=== PATIENT | male | born 1985 | race Caucasian/White ===

== ENCOUNTER 2018-06-19 19:08 | Inpatient (IN) ==
--- NOTE | 2018-06-19 19:26 | Emergency Department Note ---
Disposition Clinical Impression: Suicidal behavior Qualifiers: Attempted self-injury: with attempted self-injury Qualified Code(s): T14.91XA - Suicide attempt, initial encounter Abrasion of face Qualifiers: Encounter type: initial encounter Qualified Code(s): S00.81XA - Abrasion of other part of head, initial encounter Disposition: Admitted As Inpatient Condition: Good Psych HPI - General Chief Complaint: ED Psychiatric Symptoms Stated Complaint: SI Time Seen by Provider: 06/19/18 19:12 Source: patient Mode of arrival: private vehicle Limitations: no limitations Nursing Notes Reviewed: Yes Vital Signs Reviewed: Yes - History of Present Illness HPI Narrative: 32-year-old male history of schizoaffective and bipolar disorder currently on zyprexa who presents with a complaint of suicidal ideation. Reports yesterday he tried to scratch his face off. He told his significant other that he needed to come to the hospital because he was afraid he was going to harm himself. Reports a past history of cutting in the past. He reports compliance with his medications. Denies any alcohol use with the exception of occasional intake. Also reports using marijuana. He is also seeing things as well as hearing voices which has happened to him before. No other complaints. Pt complaint: suicidal ideation Onset (ago): day(s) History of similar episodes: Yes Improves with: none Worsens with: none Alleged intoxication: No Associated Psychiatric Symptoms: depression, suicidal ideation, auditory hallucinations, visual hallucinations Associated symptoms: Reports: denies other symptoms Traumatic symptoms: denies traumatic injury Treatments prior to arrival: none Self harm or harm to others: admits thoughts of self harm, has plan - Related Data Home Medications Medication Instructions Recorded Confirmed Cough Drops 03/18/16 03/18/16 Previous Rx's Medication Instructions Recorded Magic Mouthwash [Magic Mouthwash 10 ml PO QID PRN #240 ml 03/18/16 BLM] cephALEXin [Keflex] 500 mg PO QID #40 capsule 03/18/16 predniSONE [PredniSONE] 20 mg PO BID #10 tablet 03/18/16 Ondansetron HCl [Zofran] 4 mg PO TID PRN #21 tablet 04/18/17 Cephalexin [Keflex] 500 mg PO BID #14 capsule 04/27/17 Allergies Allergy/AdvReac Type Severity Reaction Status Date / Time No Known Allergies Allergy Verified 04/27/17 13:16 All systems ED: reviewed and negative except as stated. Psychiatric: Reports: anxiety, depression, suicidal thoughts, auditory reece ucinations, visual hallucinations Past Medical History - Past Medical History Attestation: Yes The following information was validated with the patient. Source: patient Medical history: Reports: no medical history Surgical history: Reports: no surgical history, vasectomy Psychiatric history: Reports: anxiety, bipolar, depression - Social History Smoking Status: Current every day smoker Smokeless Tobacco Status: No Alcohol use: Reports: occasionally Drug use: Reports: marijuana Physical Exam - General Limitations: no limitations General appearance: alert, in no apparent distress - Head Head exam: atraumatic, normocephalic, other (There are numerous superficial abrasions over the face as well as a few ecchymotic areas over the right forehead and christian.) - Eye Eye exam: Present: normal appearance - ENT ENT exam: normal exam - Neck Neck exam: Present: normal inspection - Chest Chest inspection: Present: normal inspection, symmetric chest wall rise - Respiratory Respiratory exam: Present: normal lung sounds bilaterally - Cardiovascular Cardiovascular exam: Present: normal rhythm, tachycardia, normal heart sounds - Abdominal Exam Abdominal exam: Present: soft, Non-Tender. Absent: tenderness, distention, rigidity - Extremities Exam Extremities exam: Present: normal inspection, full ROM - Expanded Upper Extremity Exam Shoulder exam: Present: normal inspection, full ROM Arm exam: Present: normal inspection, full ROM Elbow exam: Present: normal inspection, full ROM Forearm/Wrist exam: Present: normal inspection, full ROM Hand exam: Present: normal inspection, full ROM - Expanded Lower Extremity Exam Hip/Pelvis exam: Present: normal inspection, full ROM Upper leg exam: Present: normal inspection, full ROM Knee exam: Present: normal inspection, full ROM Lower leg exam: Present: normal inspection, full ROM Ankle exam: Present: normal inspection, full ROM Foot/toe exam: Present: normal inspection, full ROM - Neurological Exam Neurological exam: Present: alert, other (GCS 15. Answers questions appropriately. Moves all extremities) - Psychiatric Psychiatric exam: Present: anxious, suicidal ideation - Skin Skin exam: Present: warm, dry Course Course Narrative: Patient seen and examined. Vital signs reviewed. He is pink slipped for suicidal ideation. Plan for labs for medical clearance and psychiatric evaluation. - Reevaluation(s) Reevaluation #1: Patient is medically cleared awaiting psychiatric evaluation. Time: 20:53 Vital Signs Temperature 98.3 F 06/19/18 19:18 Pulse Rate 110 06/19/18 19:18 Respiratory Rate 18 06/19/18 19:18 Blood Pressure 143/92 06/19/18 19:18 O2 Sat by Pulse Oximetry 97 06/19/18 19:18 Temperature 98.3 F 06/19/18 19:18 Pulse Rate 110 06/19/18 19:18 Respiratory Rate 18 06/19/18 19:18 Blood Pressure 143/92 06/19/18 19:18 O2 Sat by Pulse Oximetry 97 06/19/18 19:18 Psych - MDM Narrative Medical decision making narrative: 32-year-old male presenting with suicidal ideation and self injurious behavior. He was medically cleared and evaluated by psychiatry. The patient was deemed appropriate for inpatient admission. - Lab Data Lab results reviewed: Yes I reviewed the patient's lab results. Result diagrams: 06/19/18 19:40 06/19/18 19:40 Lab Results 06/19/18 06/19/18 06/19/18 Range/Units 19:40 19:40 19:52 WBC 11.6 H (4.3-11.1) K/mcL RBC 5.54 H (4.19-5.50) M/mcL Hgb 17.2 H (12.9-16.9) g/dL Hct 47.7 (37.5-50.1) % MCV 86.1 (83.0-100.0) fL MCH 31.0 (28.0-33.3) pg MCHC 36.1 H (31.6-35.5) g/dL RDW 11.9 (11.5-14.5) % Plt Count 308 (140-400) K/mcL MPV 9.5 (9.4-12.4) fL Immature Gran % 0.2 (0-4) % Seg Neutrophils % 52.6 % Lymphocytes % 36.6 % Monocytes % 6.7 % Eosinophils % 3.1 % Basophils % 0.8 % Neutrophils # 6.1 (1.6-8.9) K/mcL Lymphocytes # 4.2 (0.6-4.6) K/mcL Monocytes # 0.8 (0.0-1.3) K/mcL Eosinophils # 0.4 (0.0-0.6) K/mcL Basophils # 0.1 (0.0-0.2) K/mcL Sodium 140 (136-145) mEq/L Potassium 4.3 (3.5-5.1) mEq/L Chloride 103 (98-107) mEq/L Carbon Dioxide 26 (23-29) mEq/L BUN 7 (6-20) mg/dL Creatinine 0.88 (0.70-1.30) mg/dL Est GFR ( Amer) > 60 (> 60) Est GFR (Non-Af Amer) > 60 (> 60) BUN/Creatinine Ratio 8 (6-26) Glucose 90 (70-105) mg/dL Calculated Osmolality 288 (280-300) Calcium 9.9 (8.6-10.3) mg/dL Urine Color Yellow (Yellow) Urine Clarity Clear (Clear) Urine pH 6.0 (5.0-8.0) pH Units Ur Specific [place] 1.008 L (1.010-1.025) Urine Protein Negative (Neg-Trace) mg/dL Urine Glucose (UA) Normal (Normal) mg/dL Urine Ketones Negative (Negative) mg/dL Urine Blood Negative (Negative) Urine Nitrite Negative (Negative) Urine Bilirubin Negative (Negative) Urine Urobilinogen Normal (Normal) mg/dL Ur Leukocyte Esterase Negative (Negative) Salicylates < 2.5 L (15.0-30.0) mg/dL Urine Opiates Screen (Yzrhpp=288) ng/mL Acetaminophen < 10 L (10-20) mcg/mL Ur Barbiturates Screen (Eqegls=236) ng/mL Ur Phencyclidine Scrn (Cutoff=25) ng/mL Ur Amphetamines Screen (Ojczml=2277) ng/mL U Benzodiazepines Scrn (Fhbghm=350) ng/mL Urine Cocaine Screen (Cutoff= 300) ng/mL U Marijuana (THC) Screen (Cutoff = 50) ng/mL Ur Drug Screen Interp Ethyl Alcohol 59 H (Less than 10) mg/dL 06/19/18 Range/Units 19:52 WBC (4.3-11.1) K/mcL RBC (4.19-5.50) M/mcL Hgb (12.9-16.9) g/dL Hct (37.5-50.1) % MCV (83.0-100.0) fL MCH (28.0-33.3) pg MCHC (31.6-35.5) g/dL RDW (11.5-14.5) % Plt Count (140-400) K/mcL MPV (9.4-12.4) fL Immature Gran % (0-4) % Seg Neutrophils % % Lymphocytes % % Monocytes % % Eosinophils % % Basophils % % Neutrophils # (1.6-8.9) K/mcL Lymphocytes # (0.6-4.6) K/mcL Monocytes # (0.0-1.3) K/mcL Eosinophils # (0.0-0.6) K/mcL Basophils # (0.0-0.2) K/mcL Sodium (136-145) mEq/L Potassium (3.5-5.1) mEq/L Chloride (98-107) mEq/L Carbon Dioxide (23-29) mEq/L BUN (6-20) mg/dL Creatinine (0.70-1.30) mg/dL Est GFR ( Amer) (> 60) Est GFR (Non-Af Amer) (> 60) BUN/Creatinine Ratio (6-26) Glucose (70-105) mg/dL Calculated Osmolality (280-300) Calcium (8.6-10.3) mg/dL Urine Color (Yellow) Urine Clarity (Clear) Urine pH (5.0-8.0) pH Units Ur Specific [place] (1.010-1.025) Urine Protein (Neg-Trace) mg/dL Urine Glucose (UA) (Normal) mg/dL Urine Ketones (Negative) mg/dL Urine Blood (Negative) Urine Nitrite (Negative) Urine Bilirubin (Negative) Urine Urobilinogen (Normal) mg/dL Ur Leukocyte Esterase (Negative) Salicylates (15.0-30.0) mg/dL Urine Opiates Screen Negative (Ukvzxz=526) ng/mL Acetaminophen (10-20) mcg/mL Ur Barbiturates Screen Negative (Kqjprb=286) ng/mL Ur Phencyclidine Scrn Negative (Cutoff=25) ng/mL Ur Amphetamines Screen Negative (Wdjrts=6529) ng/mL U Benzodiazepines Scrn Negative (Bacmxd=923) ng/mL Urine Cocaine Screen Negative (Cutoff= 300) ng/mL U Marijuana (THC) Screen Positive H (Cutoff = 50) ng/mL Ur Drug Screen Interp See Below Ethyl Alcohol (Less than 10) mg/dL Psychiatric Medical Clearance - Medical Clearance Checklist Medical History: No Social History Section defined Current Vitals: Last Vital Signs Temp 98.3 F 06/19/18 19:18 Pulse 110 06/19/18 19:18 Resp 18 06/19/18 19:18 BP 143/92 06/19/18 19:18 Pulse Ox 97 06/19/18 19:18 Psychiatric Lab Panel: Drug Levels and Toxicity 06/19/18 06/19/18 19:40 19:52 Urine Opiates Screen Negative Acetaminophen < 10 L Ur Barbiturates Screen Negative Ur Phencyclidine Scrn Negative Ur Amphetamines Screen Negative U Benzodiazepines Scrn Negative Urine Cocaine Screen Negative U Marijuana (THC) Screen Positive H Ethyl Alcohol 59 H Abnormal Labs: Abnormal lab results WBC 11.6 K/mcL (4.3-11.1) H 06/19/18 19:40 RBC 5.54 M/mcL (4.19-5.50) H 06/19/18 19:40 Hgb 17.2 g/dL (12.9-16.9) H 06/19/18 19:40 MCHC 36.1 g/dL (31.6-35.5) H 06/19/18 19:40 Ur Specific [place] 1.008 (1.010-1.025) L 06/19/18 19:52 Salicylates < 2.5 mg/dL (15.0-30.0) L 06/19/18 19:40 Acetaminophen < 10 mcg/mL (10-20) L 06/19/18 19:40 U Marijuana (THC) Screen Positive ng/mL (Cutoff = 50) H 06/19/18 19:52 Ethyl Alcohol 59 mg/dL (Less than 10) H 06/19/18 19:40 Statement of Medical Clearance: I have evaluated the patient, reviewed diagnostic information, and certify that the patient's medical condition is sufficiently stable that transfer to the psychiatric unit does not pose a significant risk of deterioration.
[2018-06-19 19:48] LABS: Basophils # 0.1 K/mcL (0.0-0.2); Basophils % 0.8 %; Eosinophils # 0.4 K/mcL (0.0-0.6); Eosinophils % 3.1 %; Hematocrit 47.7 % (37.5-50.1); Hemoglobin 17.2 g/dL (12.9-16.9); Immature Granulocytes % 0.2 % (0-4); Lymphocytes # 4.2 K/mcL (0.6-4.6); Lymphocytes % 36.6 %; Mean Corpuscular HGB Conc 36.1 g/dL (31.6-35.5); Mean Corpuscular Volume 86.1 fL (83.0-100.0); Mean Platelet Volume 9.5 fL (9.4-12.4); Monocytes # 0.8 K/mcL (0.0-1.3); Monocytes % 6.7 %; Neutrophils # 6.1 K/mcL (1.6-8.9); Platelet Count 308 K/mcL (140-400); Red Blood Count 5.54 M/mcL (4.19-5.50); Red Cell Distribution Width 11.9 % (11.5-14.5); Segmented Neutrophils % 52.6 %
[2018-06-19 20:05] LABS: Bilirubin,Urine Negative (Negative); Blood,Urine Negative (Negative); Clarity,Urine Clear (Clear); Color,Urine Yellow (Yellow); Glucose,Urine (UA) Normal (Normal); Ketones,Urine Negative (Negative); Leukocyte Esterase,Urine Negative (Negative); Nitrite,Urine Negative (Negative); Protein,Urine Negative (Neg-Trace); Specific Gravity,Urine 1.008 (1.010-1.025); Urobilinogen,Urine Normal (Normal)
[2018-06-19 20:09] LABS: Acetaminophen < 10 mcg/mL (10-20); BUN/Creatinine Ratio 8 (6-26); Blood Urea Nitrogen 7 mg/dL (6-20); Calcium 9.9 mg/dL (8.6-10.3); Carbon Dioxide 26 mEq/L (23-29); Chloride 103 mEq/L (98-107); Ethanol 59 mg/dL (Less than 10); Glucose 90 mg/dL (70-105); Osmolality,Calculated 288 (280-300); Potassium 4.3 mEq/L (3.5-5.1); Salicylate < 2.5 mg/dL (15.0-30.0); Sodium 140 mEq/L (136-145); eGFR For Non-African Americans > 60 (> 60)
[2018-06-19 20:18] LABS: Amphetamine Screen,Urine Negative ng/mL (Cutoff=1000); Barbiturate Screen,Urine Negative ng/mL (Cutoff=200); Benzodiazepines Screen,Urine Negative ng/mL (Cutoff=200); Cannabinoid Screen,Urine Positive ng/mL (Cutoff = 50); Cocaine Screen,Urine Negative ng/mL (Cutoff= 300); Opiate Screen,Urine Negative ng/mL (Cutoff=300); Phencyclidine Screen,Urine Negative ng/mL (Cutoff=25)
--- NOTE | 2018-06-19 20:26 | Emergency Department Note ---
Disposition Clinical Impression: Suicidal behavior Qualifiers: Attempted self-injury: without attempted self-injury Qualified Code(s): R46.89 - Other symptoms and signs involving appearance and behavior Disposition: Still a Patient Condition: Good Referrals: Elena Lopez [Other] Forms: ED Satisfaction Letter General Adult HPI - General Chief complaint: ED Psychiatric Symptoms Stated complaint: SI Time Seen by Provider: 06/19/18 19:12 Source: patient Mode of arrival: private vehicle Limitations: no limitations - History of Present Illness Pain Scale: 0 - Related Data Home Medications Medication Instructions Recorded Confirmed Cough Drops 03/18/16 03/18/16 Previous Rx's Medication Instructions Recorded Magic Mouthwash [Magic Mouthwash 10 ml PO QID PRN #240 ml 03/18/16 BLM] cephALEXin [Keflex] 500 mg PO QID #40 capsule 03/18/16 predniSONE [PredniSONE] 20 mg PO BID #10 tablet 03/18/16 Ondansetron HCl [Zofran] 4 mg PO TID PRN #21 tablet 04/18/17 Cephalexin [Keflex] 500 mg PO BID #14 capsule 04/27/17 Allergies Allergy/AdvReac Type Severity Reaction Status Date / Time No Known Allergies Allergy Verified 04/27/17 13:16 Psychiatric: Reports: anxiety, depression, suicidal thoughts, auditory hallucinations, visual hallucinations Past Medical History - Past Medical History Medical history: Reports: no medical history Surgical history: Reports: no surgical history, vasectomy Psychiatric history: Reports: anxiety, bipolar, depression - Social History Smoking Status: Current every day smoker Smokeless Tobacco Status: No Alcohol use: Reports: occasionally Drug use: Reports: marijuana Physical Exam - General Limitations: no limitations General appearance: alert, in no apparent distress Course Vital Signs Temperature 98.3 F 06/19/18 19:18 Pulse Rate 110 06/19/18 19:18 Respiratory Rate 18 06/19/18 19:18 Blood Pressure 143/92 06/19/18 19:18 O2 Sat by Pulse Oximetry 97 06/19/18 19:18 Temperature 98.3 F 06/19/18 19:18 Pulse Rate 110 06/19/18 19:18 Respiratory Rate 18 06/19/18 19:18 Blood Pressure 143/92 06/19/18 19:18 O2 Sat by Pulse Oximetry 97 06/19/18 19:18 Medical Decision Making - Lab Data Result diagrams: 06/19/18 19:40 06/19/18 19:40 Lab Results 06/19/18 06/19/18 06/19/18 Range/Units 19:40 19:40 19:52 WBC 11.6 H (4.3-11.1) K/mcL RBC 5.54 H (4.19-5.50) M/mcL Hgb 17.2 H (12.9-16.9) g/dL Hct 47.7 (37.5-50.1) % MCV 86.1 (83.0-100.0) fL MCH 31.0 (28.0-33.3) pg MCHC 36.1 H (31.6-35.5) g/dL RDW 11.9 (11.5-14.5) % Plt Count 308 (140-400) K/mcL MPV 9.5 (9.4-12.4) fL Immature Gran % 0.2 (0-4) % Seg Neutrophils % 52.6 % Lymphocytes % 36.6 % Monocytes % 6.7 % Eosinophils % 3.1 % Basophils % 0.8 % Neutrophils # 6.1 (1.6-8.9) K/mcL Lymphocytes # 4.2 (0.6-4.6) K/mcL Monocytes # 0.8 (0.0-1.3) K/mcL Eosinophils # 0.4 (0.0-0.6) K/mcL Basophils # 0.1 (0.0-0.2) K/mcL Sodium 140 (136-145) mEq/L Potassium 4.3 (3.5-5.1) mEq/L Chloride 103 (98-107) mEq/L Carbon Dioxide 26 (23-29) mEq/L BUN 7 (6-20) mg/dL Creatinine 0.88 (0.70-1.30) mg/dL Est GFR ( Amer) > 60 (> 60) Est GFR (Non-Af Amer) > 60 (> 60) BUN/Creatinine Ratio 8 (6-26) Glucose 90 (70-105) mg/dL Calculated Osmolality 288 (280-300) Calcium 9.9 (8.6-10.3) mg/dL Urine Color Yellow (Yellow) Urine Clarity Clear (Clear) Urine pH 6.0 (5.0-8.0) pH Units Ur Specific [place] 1.008 L (1.010-1.025) Urine Protein Negative (Neg-Trace) mg/dL Urine Glucose (UA) Normal (Normal) mg/dL Urine Ketones Negative (Negative) mg/dL Urine Blood Negative (Negative) Urine Nitrite Negative (Negative) Urine Bilirubin Negative (Negative) Urine Urobilinogen Normal (Normal) mg/dL Ur Leukocyte Esterase Negative (Negative) Salicylates < 2.5 L (15.0-30.0) mg/dL Urine Opiates Screen (Dcdcqt=599) ng/mL Acetaminophen < 10 L (10-20) mcg/mL Ur Barbiturates Screen (Fmddip=843) ng/mL Ur Phencyclidine Scrn (Cutoff=25) ng/mL Ur Amphetamines Screen (Vzxbxe=6810) ng/mL U Benzodiazepines Scrn (Nrkwmi=870) ng/mL Urine Cocaine Screen (Cutoff= 300) ng/mL U Marijuana (THC) Screen (Cutoff = 50) ng/mL Ur Drug Screen Interp Ethyl Alcohol 59 H (Less than 10) mg/dL 06/19/18 Range/Units 19:52 WBC (4.3-11.1) K/mcL RBC (4.19-5.50) M/mcL Hgb (12.9-16.9) g/dL Hct (37.5-50.1) % MCV (83.0-100.0) fL MCH (28.0-33.3) pg MCHC (31.6-35.5) g/dL RDW (11.5-14.5) % Plt Count (140-400) K/mcL MPV (9.4-12.4) fL Immature Gran % (0-4) % Seg Neutrophils % % Lymphocytes % % Monocytes % % Eosinophils % % Basophils % % Neutrophils # (1.6-8.9) K/mcL Lymphocytes # (0.6-4.6) K/mcL Monocytes # (0.0-1.3) K/mcL Eosinophils # (0.0-0.6) K/mcL Basophils # (0.0-0.2) K/mcL Sodium (136-145) mEq/L Potassium (3.5-5.1) mEq/L Chloride (98-107) mEq/L Carbon Dioxide (23-29) mEq/L BUN (6-20) mg/dL Creatinine (0.70-1.30) mg/dL Est GFR ( Amer) (> 60) Est GFR (Non-Af Amer) (> 60) BUN/Creatinine Ratio (6-26) Glucose (70-105) mg/dL Calculated Osmolality (280-300) Calcium (8.6-10.3) mg/dL Urine Color (Yellow) Urine Clarity (Clear) Urine pH (5.0-8.0) pH Units Ur Specific [place] (1.010-1.025) Urine Protein (Neg-Trace) mg/dL Urine Glucose (UA) (Normal) mg/dL Urine Ketones (Negative) mg/dL Urine Blood (Negative) Urine Nitrite (Negative) Urine Bilirubin (Negative) Urine Urobilinogen (Normal) mg/dL Ur Leukocyte Esterase (Negative) Salicylates (15.0-30.0) mg/dL Urine Opiates Screen Negative (Ymdcin=262) ng/mL Acetaminophen (10-20) mcg/mL Ur Barbiturates Screen Negative (Cdmzls=958) ng/mL Ur Phencyclidine Scrn Negative (Cutoff=25) ng/mL Ur Amphetamines Screen Negative (Skhgkb=5901) ng/mL U Benzodiazepines Scrn Negative (Gxsnnn=998) ng/mL Urine Cocaine Screen Negative (Cutoff= 300) ng/mL U Marijuana (THC) Screen Positive H (Cutoff = 50) ng/mL Ur Drug Screen Interp See Below Ethyl Alcohol (Less than 10) mg/dL Attestation Statement - Attestation Attestation: I examined this patient and my medical decision-making was reviewed with the Resident Physician. I agree with the documented findings, disposition and treatment plan as described except to the extent set forth below. 32 year old male presents to the ED with complaints of SI and states that he has had increasingly symptoms over the past few days. He has been evlauted at our facility before but no admission. Carla is now medicaly cleared and we will consult 1A.
[2018-06-19] MEDS ORDERED: *HR* LORazepam 1 MG TABLET PO ONE (21:26)
[2018-06-19] MEDS ORDERED: *HR* LORazepam 2 MG/ML VIAL IM PRN (22:20)
[2018-06-19] MEDS ORDERED: Ibuprofen 400 MG TABLET PO PRN (22:20)
[2018-06-19] MEDS ORDERED: *HR* LORazepam 1 MG TABLET PO PRN (22:20)
[2018-06-19] MEDS ORDERED: Mag Hydrox/Al Hydrox/Simeth 30 ML UDC PO PRN (22:20)
[2018-06-19] MEDS ORDERED: MOM Conc 10 ML UD.LIQ PO PRN (22:20)
[2018-06-19] MEDS ORDERED: Haloperidol Lactate 5 MG/ML VIAL IM PRN (22:20)
[2018-06-19] MEDS ORDERED: clonazePAM 1 MG TABLET PO PRN (22:24)
[2018-06-19] MEDS ORDERED: OLANZapine 5 MG TAB.RAPDIS PO SCH (22:30)
[2018-06-19] MEDS: traZODone 50 MG TABLET PO PRN (23:40)
[2018-06-19] MEDS: hydrOXYzine pamoate 25 MG CAPSULE PO PRN (23:41)
[2018-06-20] MEDS: OLANZapine 5 MG TAB.RAPDIS PO SCH ×2 (00:03→20:35)
--- NOTE | 2018-06-20 12:27 | Psychiatry History & Physical ---
Date of Encounter: 06/20/18 Time of Encounter: 12:18 History of Present Illness Patient Stated Chief Complaint: suicidal ideation Medicare Admission Attestation: For traditional Medicare patients the provided hospital inpatient services are reasonable and necessary and in the case of services not specified as inpatient-only under 42 CFR 419.22 (n), that they are appropriately provided as inpatient services in accordance 42 CFR 412.3. For Critical Access Hospital the patient may reasonably be expected to be discharged or transferred to a hospital within 96 hours after admission to the Critical Access Hospital. Admitted From: Home Plans for Post Hospital Care: Home History of Present Illness: Mr. Key is a 32 year old male who was admitted secondary to SI. Client has a history of cutting and overdosing but has never been hospitalized. The other night he superficially scratched his face with his nails. Endorsing AH and VH. However, does not appear outwardly psychotic. Client describes hallucinations as coming from within his own head and not something outside of him. Endorses a racing mind but not clear manic symptoms. More of a constantly fluctuating mood. Also struggles with an eating disorder and feels like he has to purge no matter how much he eats. Has seen a psychiatrist and therapist for about a year but has not noticed much improvement with the medications he has tried (Prozac, Depakote, Lamictal, Seroquel, and now Zyprexa and Klonopin). Diagnosed with Schizoaffective Disorder and PTSD. However, the way he describes himself, Borderline Personality Disorder may be a better fit. Discussed DBT therapy and how it might be a treatment option to consider in the future. Client uses Etoh on occasion and THC regularly. Denies all other drugs of abuse. Physically healthy. Strong family history of mental health problems including an aunt "who is just like me." Sister of a heroin overdose a year ago. Two older brothers client does not speak to. Father . Client is and is supportive. Client states the next medication his psychiatrist planned to try was Wellbutrin. Discussed the pros and cons of this medication. He is interested in starting this medication now so will go ahead and give him a dose today. Past Med Surg Social Fam HX - Past Medical History Medical history: no medical history - Past Psychiatric History Psychiatric history: Reports: anxiety, bipolar, depression, PTSD, prior suicide attempt Family psychiatric history: Yes Family Psychiatric History Details: multiple family members, sister of heroin overdose Family History of Suicide: Unknown - Past Surgical History Surgical History: no surgical history, vasectomy - Social History Smoking Status: Current every day smoker Smokeless Tobacco Status: No Alcohol use: occasionally Drug use: marijuana Medications & Allergies OLANZapine [Zyprexa] 15 mg PO HS 06/19/18 [History] clonazePAM [Clonazepam] 1 mg PO BID PRN 06/19/18 [History] Allergy/AdvReac Type Severity Reaction Status Date / Time No Known Allergies Allergy Verified 04/27/17 13:16 Review of Systems Constitutional: Denies: fever, chills, weakness, weight change Eyes: Denies: eye pain, vision change Ears, Nose, Throat: Denies: ear pain, throat pain, dental pain, hearing loss, congestion Cardiovascular: Denies: chest pain, palpitations, dyspnea on exertion Respiratory: Denies: cough, dyspnea, wheezes Gastrointestinal: Denies: abdominal pain, nausea, vomiting, diarrhea, constipation Genitourinary male: Denies: urgency, dysuria, frequency, genital lesions Musculoskeletal: Denies: joint swelling, joint pain Integumentary: Denies: rash, lesions, pruritus Neurological: Denies: headache, weakness, numbness, memory loss Endocrine: Denies: fatigue, heat or cold intolerance Hematologic/Lymphatic: Denies: easy bruising, lymphadenopathy Allergic/Immunologic: Denies: urticaria, itchy eyes Exam - HEENT Head exam IM: Present: atraumatic Eye exam IM: Present: EOMI ENT exam IM: Present: mucous membranes moist - Neurological Neurological exam: Present: CN II-XII intact - Respiratory Respiratory exam IM: Present: CTAB - GI/Abdominal GI/Abdominal exam IM: Present: normal bowel sounds, soft. Absent: tenderness - Extremities Extremities exam IM: Present: full ROM - Skin Skin exam IM: Present: abrasion - Constitutional Vitals: Temp Pulse Resp BP Pulse Ox 97.3 F L 84 18 133/82 98 06/20/18 09:00 06/20/18 09:00 06/20/18 09:00 06/20/18 09:00 06/20/18 09:00 General appearance: age & developmentally appropriate - Musculoskeletal Gait: normal Station: relaxed Strength & Tone: normal for patient - Psychiatric Patient Orientation: Yes Person, Yes Time, Yes Place Level of alertness: Alert Behavior: calm, cooperative Psychomotor activity: Normal Eye Contact: Maintains Eye Contact Mood Description: Anxious Affect description: congruent with mood Speech Volume: Normal Speech pattern: normal rate, normal rhythm, normal tone, fluent, spontaneous Language & Vocabulary: consistent with education Thought Process: Linear Thought Content: Yes Suicidal ideation, No Homicidal ideation, No Overt delusions Perceptual Disturbances: No Reacting to internal stimuli, Yes Auditory hallucinations, Yes Visual hallucinations Attention Span Ability: Capable of Focused Attention Memory Description: Grossly Intact Patient Reliability: Reliable Historian Fund of knowledge: Yes abstraction ability Intelligence Estimate: Average Judgment: Limited Insight: Partial Results - Drug Levels and Toxicology Drug Levels and Toxicology: Drug Levels and Toxicity 06/19/18 06/19/18 19:40 19:52 Urine Opiates Screen Negative Acetaminophen < 10 L Ur Barbiturates Screen Negative Ur Phencyclidine Scrn Negative Ur Amphetamines Screen Negative U Benzodiazepines Scrn Negative Urine Cocaine Screen Negative U Marijuana (THC) Screen Positive H Ethyl Alcohol 59 H - Labs Labs: Laboratory Last Values WBC 11.6 K/mcL (4.3-11.1) H 06/19/18 19:40 RBC 5.54 M/mcL (4.19-5.50) H 06/19/18 19:40 Hgb 17.2 g/dL (12.9-16.9) H 06/19/18 19:40 Hct 47.7 % (37.5-50.1) 06/19/18 19:40 MCV 86.1 fL (83.0-100.0) 06/19/18 19:40 MCH 31.0 pg (28.0-33.3) 06/19/18 19:40 MCHC 36.1 g/dL (31.6-35.5) H 06/19/18 19:40 RDW 11.9 % (11.5-14.5) 06/19/18 19:40 Plt Count 308 K/mcL (140-400) 06/19/18 19:40 MPV 9.5 fL (9.4-12.4) 06/19/18 19:40 Immature Gran % 0.2 % (0-4) 06/19/18 19:40 Seg Neutrophils % 52.6 % 06/19/18 19:40 Lymphocytes % 36.6 % 06/19/18 19:40 Monocytes % 6.7 % 06/19/18 19:40 Eosinophils % 3.1 % 06/19/18 19:40 Basophils % 0.8 % 06/19/18 19:40 Neutrophils # 6.1 K/mcL (1.6-8.9) 06/19/18 19:40 Lymphocytes # 4.2 K/mcL (0.6-4.6) 06/19/18 19:40 Monocytes # 0.8 K/mcL (0.0-1.3) 06/19/18 19:40 Eosinophils # 0.4 K/mcL (0.0-0.6) 06/19/18 19:40 Basophils # 0.1 K/mcL (0.0-0.2) 06/19/18 19:40 Sodium 140 mEq/L (136-145) 06/19/18 19:40 Potassium 4.3 mEq/L (3.5-5.1) 06/19/18 19:40 Chloride 103 mEq/L (98-107) 06/19/18 19:40 Carbon Dioxide 26 mEq/L (23-29) 06/19/18 19:40 BUN 7 mg/dL (6-20) 06/19/18 19:40 Creatinine 0.88 mg/dL (0.70-1.30) 06/19/18 19:40 Est GFR ( Amer) > 60 (> 60) 06/19/18 19:40 Est GFR (Non-Af Amer) > 60 (> 60) 06/19/18 19:40 BUN/Creatinine Ratio 8 (6-26) 06/19/18 19:40 Glucose 90 mg/dL (70-105) 06/19/18 19:40 Calculated Osmolality 288 (280-300) 06/19/18 19:40 Calcium 9.9 mg/dL (8.6-10.3) 06/19/18 19:40 Urine Color Yellow (Yellow) 06/19/18 19:52 Urine Clarity Clear (Clear) 06/19/18 19:52 Urine pH 6.0 pH Units (5.0-8.0) 06/19/18 19:52 Ur Specific [place] 1.008 (1.010-1.025) L 06/19/18 19:52 Urine Protein Negative mg/dL (Neg-Trace) 06/19/18 19:52 Urine Glucose (UA) Normal mg/dL (Normal) 06/19/18 19:52 Urine Ketones Negative mg/dL (Negative) 06/19/18 19:52 Urine Blood Negative (Negative) 06/19/18 19:52 Urine Nitrite Negative (Negative) 06/19/18 19:52 Urine Bilirubin Negative (Negative) 06/19/18 19:52 Urine Urobilinogen Normal mg/dL (Normal) 06/19/18 19:52 Ur Leukocyte Esterase Negative (Negative) 06/19/18 19:52 Salicylates < 2.5 mg/dL (15.0-30.0) L 06/19/18 19:40 Urine Opiates Screen Negative ng/mL (Tbomzo=672) 06/19/18 19:52 Acetaminophen < 10 mcg/mL (10-20) L 06/19/18 19:40 Ur Barbiturates Screen Negative ng/mL (Xykuaz=140) 06/19/18 19:52 Ur Phencyclidine Scrn Negative ng/mL (Cutoff=25) 06/19/18 19:52 Ur Amphetamines Screen Negative ng/mL (Vuzlkx=9944) 06/19/18 19:52 U Benzodiazepines Scrn Negative ng/mL (Bdbjfm=770) 06/19/18 19:52 Urine Cocaine Screen Negative ng/mL (Cutoff= 300) 06/19/18 19:52 U Marijuana (THC) Screen Positive ng/mL (Cutoff = 50) H 06/19/18 19:52 Ur Drug Screen Interp See Below 06/19/18 19:52 Ethyl Alcohol 59 mg/dL (Less than 10) H 06/19/18 19:40 Assessment and Plan (1) Bipolar II disorder Current visit: Yes Status: Acute Plan: Admit inpatient for safety and stabilization, Close observation, Suicide Precautions per unit protocol, Encourage participation in unit milieu, Group Therapy, Monitor sleep, Monitor appetite Risks, benefits, side effects, alternatives discussed w/pt: Yes Patient agreeable to treatment: Yes Plans for Post Hospital Care: Home Estimated Length of Stay (Days): 4
[2018-06-20] MEDS: BuPROPion XL (24 HR) 150 MG TABLET PO SCH (12:56)
[2018-06-20] MEDS: Nicotine 2 MG GUM BC PRN (17:15)
[2018-06-20] MEDS: hydrOXYzine pamoate 25 MG CAPSULE PO PRN (20:36)
[2018-06-20] MEDS: traZODone 50 MG TABLET PO PRN (20:36)
[2018-06-21] MEDS: BuPROPion XL (24 HR) 150 MG TABLET PO SCH (08:40)
[2018-06-21 09:11] VITALS: BP 123/89
[2018-06-21] MEDS: Nicotine 2 MG GUM BC PRN (09:30)
--- NOTE | 2018-06-21 11:16 | Discharge Summary ---
Date of Encounter: 06/21/18 Time of Encounter: 11:13 Diagnosis - Discharge Diagnosis (1) Bipolar II disorder Status: Acute Medications - Discharge Medications Prescriptions: BuPROPion XL (24 HR) [Wellbutrin Xl] 150 mg PO DAILY #30 tab.er.24h traZODone [TraZODone] 50 mg PO HS PRN #30 tablet PRN Reason: Insomnia OLANZapine [Zyprexa] 15 mg PO HS 06/19/18 [History] clonazePAM [Clonazepam] 1 mg PO BID PRN 06/19/18 [History] BuPROPion XL (24 HR) [Wellbutrin Xl] 150 mg PO DAILY #30 tab.er.24h 06/21/18 [Rx] traZODone [TraZODone] 50 mg PO HS PRN #30 tablet 06/21/18 [Rx] Allergy/AdvReac Type Severity Reaction Status Date / Time No Known Allergies Allergy Verified 04/27/17 13:16 Results Procedures and tests throughout hospitalization: Completed Lab Orders Category Date Time Status Acetaminophen Stat Lab 06/19/18 19:40 Completed Basic Metabolic Panel Stat Lab 06/19/18 19:40 Completed Complete Blood Count [HEME] Stat Lab 06/19/18 19:40 Completed Drug Screen, Urine [UCHEM] Stat Lab 06/19/18 19:52 Completed Ethanol Stat Lab 06/19/18 19:40 Completed Salicylate Stat Lab 06/19/18 19:40 Completed Urinalysis reflex Microscopic [URIN] Stat Lab 06/19/18 19:52 Completed Provider Date of admission: 06/19/18 22:02 Primary care physician: PCP NONE Discharging clinician: Jyoti Oleary Psychiatry Exam - Constitutional Vitals: Temp Pulse Resp BP Pulse Ox 98.1 F 87 18 123/89 96 06/21/18 09:00 06/21/18 09:00 06/21/18 09:00 06/21/18 09:00 06/21/18 09:00 General appearance: age & developmentally appropriate - Musculoskeletal Gait: normal Station: relaxed Strength & Tone: normal for patient - Psychiatric Patient Orientation: Yes Person, Yes Time, Yes Place Level of alertness: Alert Behavior: calm, cooperative Psychomotor activity: Normal Eye Contact: Maintains Eye Contact Mood Description: Euthymic/stable Affect description: congruent with mood, full range Speech Volume: Normal Speech pattern: normal rate, normal rhythm, normal tone, fluent, spontaneous Language & Vocabulary: consistent with education Thought Process: Linear, Goal Oriented Thought Content: No Suicidal ideation, No Homicidal ideation, No Overt delusions Perceptual Disturbances: No Auditory hallucinations, No Visual hallucinations Attention Span Ability: Capable of Focused Attention Memory Description: Grossly Intact Patient Reliability: Reliable Historian Fund of knowledge: Yes abstraction ability, Yes aware of current events Intelligence Estimate: Average Judgment: Fair Insight: Partial Hospital Course Hospital course: Mr. Key is a 32 year old male who was admitted secondary to SI. He was started on Wellbutrin in addition to his home medications of Zyprexa and Klonopin with positive results. Today client reports feeling much improved. He feels hopeful about the future. He had a good visit with his and kids last night and states he has a great support system. He is already linked with a psychiatrist and counselor. Client states he has a plan in place in case he feels overwhelmed again and he was able to verbalize good coping skills. He attended a group on the unit yesterday and has been interacting in a positive manner with staff. He reports eating and sleeping well on the unit and states the good sleep has likely helped him as much as the medication. He reports the AH and VH are gone for the first time in months. He is looking forward to discharge and his immediate plan is to go out and purchase [employer] and watch it at home. "I am a huge [employer] fan." Today client is presenting as bright, reactive, and future oriented. He is denying SI/HI/AH/VH. Suspect he has an underlying personality disorder at play but this was discussed with client along with appropriate therapy treatment for the future. For now he feels safe to leave the hospital and he looks stable for discharge. Client asked his family to bring him to the hospital this admission and states he would do so again if he felt he needed a more intensive level of care. Total time spent with client greater than 30 minutes. - Time Spent with Patient Total time spent providing and/or coordinating discharge services: Assessment and Plan - Patient/Caregiver Discharge Instructions Activity: resume usual activities as tolerated Diet: regular diet - Follow up Plan Follow up with: NONE,PCP [Primary Care Provider] - Functional capacity at discharge: independent ambulation Overall status at discharge: Stable Disposition: Home, Self-Care Quality - Multiple Antipsychotics Patient discharged on 2 or more antipsychotic medications: No Procedures - Procedures Procedures: Medication Management, Crisis Stabilization, Supportive Therapy, Group Therapy
== END 2018-06-21 12:05 | disposition home or self-care (01) | DRG 753 ==
LOC: EMEROOARM 19:08 → 1ANU 22:02
PROVIDERS: ADMIT Psychiatry & Neurology Psychiatry; ATTEND Psychiatry & Neurology Psychiatry